=== PATIENT | female | born 1985 | race Caucasian/White ===

== ENCOUNTER → 2017-11-08 | Outpatient (CLI) | payer OTHER ==
[~2017-11-08] MED LIST: BSP/10 PO; ZLF/100 PO
--- NOTE | 2017-11-08 11:18 | DIAGNOSTIC IMAGING REPORT ---
R TIBIA/FIBULA 2 VIEWS ROUTINE CLINICAL HISTORY: 31 years-old Female presenting with S86.899A medial tibial stress syndrome. TECHNIQUE: Frontal and lateral views the right lower leg were obtained. COMPARISON: None. FINDINGS: No periosteal reaction. No abnormal medullary sclerosis. No fracture plane. No malalignment. No degenerative change. No focal soft tissue swelling. IMPRESSION: No radiographic abnormality of the right lower leg. If there is clinical concern for a stress fracture, MR is more sensitive modality. Electronically signed by: Manuel Root M.D. 11/08/2017 11:17 AM Dictated Date/Time: 11/08/2017 11:16 AM
== END | disposition home or self-care (01) ==
LOC: C.RAD1850 10:58
PROVIDERS: ATTEND Physician Assistant
DX: S86.899A Other injury of other muscle(s) and tendon(s) at lower leg level, unspecified leg, initial encounter (principal); X58.XXXA Exposure to other specified factors, initial encounter